=== PATIENT | female | born 1970 | race Caucasian/White ===

== ENCOUNTER 2017-12-10 07:08 | Emergency (ER) | payer SELFPAY ==
--- NOTE | 2017-12-10 07:47 | EDM.PDOC ---
ED HPI GENERAL MEDICAL PROBLEM - General Chief Complaint: Upper Extremity Injury/Pain Stated Complaint: INJURED RIGHT WRIST Time Seen by Provider: 12/10/17 07:37 Source of Information: Reports: Patient, RN Notes Reviewed History Limitations: Reports: No Limitations - History of Present Illness INITIAL COMMENTS - FREE TEXT/NARRATIVE: 46-year-old female presents to the emergency department today complaint of right wrist pain, she is right-hand dominant does do a lot of repetitive motion injury at work particularly running the mouse, she states she has had numbness and tingling in digits 4 and 5 that last for several hours and then resolve she is not taking any medications or tried any bracing, she injured herself at work - Related Data Allergies Allergy/AdvReac Type Severity Reaction Status Date / Time acetaminophen [From Percocet] Allergy Vomiting Verified 12/10/17 07:24 ephedrine Allergy Bradycardia Verified 12/10/17 07:24 oxycodone HCl [From Percocet] Allergy Vomiting Verified 12/10/17 07:24 pseudoephedrine Allergy Bradycardia Verified 12/10/17 07:24 Home Meds: Home Meds ALPRAZolam [Xanax] 1 tab PO BID PRN 02/26/17 [History] Black Cohosh 2 tab PO BID 02/26/17 [History] Triamcinolone Acetonide 1 strip TOP BID 02/26/17 [History] Past Medical History Musculoskeletal History: Reports: Other (See Below) Other Musculoskeletal History: left shoulder issues Psychiatric History: Reports: Anxiety - Past Surgical History Female Surgical History: Reports: Section Musculoskeletal Surgical History: Reports: Shoulder Surgery Social & Family History - Tobacco Use Smoking Status *Q: Current Every Day Smoker Years of Tobacco use: 15 Packs/Tins Daily: 0.5 - Caffeine Use Caffeine Use: Reports: Coffee - Recreational Drug Use Recreational Drug Use: No Review of Systems - Review of Systems Review Of Systems: See Below Musculoskeletal: Reports: Joint Pain (Right wrist) Neurological: Reports: Numbness, Tingling ED EXAM, GENERAL - Physical Exam Exam: See Below Free Text/Narrative:: Examination the right hand I do appreciate a slight bit of edema over the ulnar lateral aspect of the wrist, she has full range of motion the wrist radial pulses +2 sensation is intact there is no specific point tenderness to palpation Exam Limited By: No Limitations General Appearance: Alert, WD/WN, No Apparent Distress Course - Vital Signs Last Recorded V/S: Last Vital Signs Temp 98.7 F 12/10/17 07:31 Pulse 100 12/10/17 07:31 Resp 12 12/10/17 07:31 BP 141/97 H 12/10/17 07:31 Pulse Ox 98 12/10/17 07:31 - Orders/Labs/Meds Orders: Active Orders 24 hr Category Date Time Status Wrist Comp Min 3V Rt [CR] Stat Exams 12/10/17 07:43 Taken DME for Discharge [COMM] Urgent Oth 12/10/17 07:43 Ordered Departure - Departure Time of Disposition: 08:08 Disposition: Home, Self-Care 01 Condition: Good Clinical Impression: Repetitive motion injury Ulnar nerve compression Qualifiers: Laterality: right Qualified Code(s): G56.21 - Lesion of ulnar nerve, right upper limb - Discharge Information Referrals: Hussein Ervin MD [Primary Care Provider] - Forms: ED Department Discharge Additional Instructions: Continue to use the wrist splint for comfort, try different ergonomics at work, Please followup with your primary care provider in 7-10 days if not better, please call return to the emergency department with worsening of symptoms. - My Orders Last 24 Hours: My Active Orders 12/10/17 07:43 Wrist Comp Min 3V Rt [CR] Stat DME for Discharge [COMM] Urgent - Assessment/Plan Last 24 Hours: My Active Orders 12/10/17 07:43 Wrist Comp Min 3V Rt [CR] Stat DME for Discharge [COMM] Urgent Plan: Assessment Acuity = acute Site and laterality = ulnar nerve compression Etiology = secondary to repetitive motion injury Manifestations = numbness digits 4 and 5 Location of injury = work Lab values = x-ray right wrist I did review films myself I cannot appreciate any acute process, the official read from radiology is pending Plan She is placed in a wrist splint counseled on repetitive motion injury she follow -up with her primary care provider in the next 7-10 days if no improvement for further evaluation This note was dictated using [employer] voice recognition software please call with any questions on syntax or grammar.
--- NOTE | 2017-12-10 08:32 | CR ---
Right wrist There is normal alignment. There is no evidence of fracture. There are degenerative findings of joint space loss at the radial aspect of the wrist. Impression: 1. No acute findings.
== END 2017-12-10 08:20 | disposition home or self-care (01) ==
LOC: JP.ED 07:08
DX: G56.21 Lesion of ulnar nerve, right upper limb (principal); F17.210 Nicotine dependence, cigarettes, uncomplicated; Z88.6 Allergy status to analgesic agent; Z88.8 Allergy status to other drugs, medicaments and biological substances; X50.3XXA Overexertion from repetitive movements, initial encounter
CPT/HCPCS: 73110-26-RT; 73110-RT; 96374; 96375; 99284-25